=== PATIENT | male | born 2000 | race Hispanic/Latino ===

== ENCOUNTER 2021-02-16 08:59 | Emergency (ER) | payer SELFPAY ==
[2021-02-16] MEDS ORDERED: SODIUM CHLORIDE 0.9% 1000 ML 1,000 ML IV ONE (09:34)
--- NOTE | 2021-02-16 09:37 | Emergency Department Report ---
HPI - General Chief Complaint: Syncope Time Seen by Provider: 02/16/21 09:22 - HPI HPI: 21-year-old male presents to the emergency department via EMS from home with a complaint of seizure-like activity. The patient does not have any history of epilepsy or previous seizures. Patient says that he got up around 5:30 AM this morning and was complaining of some abnormal involuntary jerking movements of his arms. His significant other is at bedside and says that the patient came into the room, just prior to presentation, and suddenly had conv ulsions and went unresponsive. The convulsions lasted for a few minutes. When they stopped he appeared to be awake but was still confused and altered. At the time of my examination the patient is awake, alert, oriented, AAO x3, and only complains of a very mild headache. He denies any vision change, slurred speech, numbness or paresthesias, focal or lateralizing weakness, chest pain, shortness of breath, fever. He has not taken anything, nor received anything, for his symptoms prior to presentation today. ED Past Medical Hx - Past Medical History Previous Medical History?: No - Surgical History Past Surgical History?: No - Social History Smoking Status: Never Smoker Substance Use Type: None ED Review of Systems ROS: Stated complaint: SEIZURE ACTIVITY Other details as noted in HPI Comment: All other systems reviewed and negative Constitutional: denies: chills, fever Eyes: denies: eye pain, vision change ENT: denies: ear pain, throat pain Respiratory: denies: cough, shortness of breath Cardiovascular: denies: chest pain, palpitations Gastrointestinal: denies: abdominal pain, vomiting Genitourinary: denies: dysuria, discharge Musculoskeletal: denies: back pain, arthralgia Skin: denies: rash, lesions Neurological: headache (Very mild generalized), other (Seizure-like activity). denies: weakness, numbness, paresthesias Physical Exam - Physical Exam Vital Signs: Vital Signs 02/16/21 02/16/21 09:02 09:30 Temperature 98.2 F Pulse Rate 88 Respiratory 16 Rate Blood Pressure 128/80 [Left] O2 Sat by Pulse 100 97 Oximetry Physical Exam: GENERAL: The patient is well-developed well-nourished. HENT: Normocephalic. Atraumatic. Patient has moist mucous membranes. EYES: Extraocular motions are intact. No nystagmus. NECK: Supple. Trachea is midline. CHEST/LUNGS: Clear to auscultation. There is no respiratory distress noted. HEART/CARDIOVASCULAR: Regular. There is no tachycardia. There is no murmur. ABDOMEN: Abdomen is soft, nontender. Patient has normal bowel sounds. SKIN: Skin is warm and dry. NEURO: The patient is awake, alert, and oriented. The patient is cooperative. The patient has no focal neurologic deficits. Normal speech. Cranial nerves II through XII grossly intact. No facial asymmetry. No pronator drift or dysmetria. MUSCULOSKELETAL: There is no tenderness or deformity. There is no limitation range of motion. ED Course Vital Signs 02/16/21 02/16/21 09:02 09:30 Temperature 98.2 F Pulse Rate 88 Respiratory 16 Rate Blood Pressure 128/80 [Left] O2 Sat by Pulse 100 97 Oximetry ED Medical Decision Making - Lab Data Result diagrams: 02/16/21 09:38 02/16/21 09:38 Lab Results 02/16/21 02/16/21 02/16/21 Range/Units 09:38 09:38 09:38 WBC 6.7 (4.5-11.0) K/mm3 RBC 5.16 H (3.65-5.03) M/mm3 Hgb 15.3 H (11.8-15.2) gm/dl Hct 44.1 (35.5-45.6) % MCV 86 (84-94) fl MCH 30 (28-32) pg MCHC 35 H (32-34) % RDW 12.6 L (13.2-15.2) % Plt Count 195 (140-440) K/mm3 Lymph % (Auto) 15.2 (13.4-35.0) % Pratt % (Auto) 5.5 (0.0-7.3) % Eos % (Auto) 0.7 (0.0-4.3) % Baso % (Auto) 0.6 (0.0-1.8) % Lymph # (Auto) 1.0 L (1.2-5.4) K/mm3 Pratt # (Auto) 0.4 (0.0-0.8) K/mm3 Eos # (Auto) 0.0 (0.0-0.4) K/mm3 Baso # (Auto) 0.0 (0.0-0.1) K/mm3 Seg Neutrophils % 78.0 H (40.0-70.0) % Seg Neutrophils # 5.2 (1.8-7.7) K/mm3 Sodium 139 (137-145) mmol/L Potassium 3.6 (3.6-5.0) mmol/L Chloride 101.2 (98-107) mmol/L Carbon Dioxide 26 (22-30) mmol/L Anion Gap 15 mmol/L BUN 14 (9-20) mg/dL Creatinine 0.7 L (0.8-1.3) mg/dL Estimated GFR > 60 ml/min BUN/Creatinine Ratio 20 % Glucose 88 (75-100) mg/dL Calcium 9.0 (8.4-10.2) mg/dL Magnesium 2.10 (1.7-2.3) mg/dL Total Bilirubin 0.40 (0.1-1.2) mg/dL AST 18 (5-40) units/L ALT 17 (7-56) units/L Alkaline Phosphatase 72 (35-129) units/L Total Creatine Kinase 165 (55-170) units/L Total Protein 6.7 (6.3-8.2) g/dL Albumin 4.5 (3.9-5) g/dL Albumin/Globulin Ratio 2.0 % TSH (0.270-4.200) mlU/mL 02/16/21 Range/Units 09:38 WBC (4.5-11.0) K/mm3 RBC (3.65-5.03) M/mm3 Hgb (11.8-15.2) gm/dl Hct (35.5-45.6) % MCV (84-94) fl MCH (28-32) pg MCHC (32-34) % RDW (13.2-15.2) % Plt Count (140-440) K/mm3 Lymph % (Auto) (13.4-35.0) % Pratt % (Auto) (0.0-7.3) % Eos % (Auto) (0.0-4.3) % Baso % (Auto) (0.0-1.8) % Lymph # (Auto) (1.2-5.4) K/mm3 Pratt # (Auto) (0.0-0.8) K/mm3 Eos # (Auto) (0.0-0.4) K/mm3 Baso # (Auto) (0.0-0.1) K/mm3 Seg Neutrophils % (40.0-70.0) % Seg Neutrophils # (1.8-7.7) K/mm3 Sodium (137-145) mmol/L Potassium (3.6-5.0) mmol/L Chloride (98-107) mmol/L Carbon Dioxide (22-30) mmol/L Anion Gap mmol/L BUN (9-20) mg/dL Creatinine (0.8-1.3) mg/dL Estimated GFR ml/min BUN/Creatinine Ratio % Glucose (75-100) mg/dL Calcium (8.4-10.2) mg/dL Magnesium (1.7-2.3) mg/dL Total Bilirubin (0.1-1.2) mg/dL AST (5-40) units/L ALT (7-56) units/L Alkaline Phosphatase (35-129) units/L Total Creatine Kinase (55-170) units/L Total Protein (6.3-8.2) g/dL Albumin (3.9-5) g/dL Albumin/Globulin Ratio % TSH 3.080 (0.270-4.200) mlU/mL - EKG Data -: EKG Interpreted by Mi EKG shows normal: sinus rhythm, axis, intervals, QRS complexes, ST-T waves (Early repolarization) Rate: normal - EKG Data When compared to previous EKG there are: previous EKG unavailable Interpretation: normal EKG - Medical Decision Making This patient presents to the emergency department after having some seizure-like activity just prior to presentation. Since being in the emergency department he is awake, alert, oriented, AAO x3. He does not have any focal, motor or sensory deficits and his cranial nerves are intact. Labs have been unremarkable including CBC, metabolic panel, normal thyroid function, and no electrolyte derangements. Vital signs have been reassuring throughout his ED course including being afebrile. The patient has been reevaluated multiple times over about 3.5 hours without any return of seizure-like activity and he has remained stable throughout this ED course. For these reasons he appears safe for discharge home at this time. We discussed avoiding alcohol, caffeine or stimulants, illicit drugs. He knows that he cannot drive or operate heavy machinery until cleared by a neurologist. He will return to the closest emergency department with any return of seizure-like activity, new or concerning symptoms not addressed during this emergency department visit, or with any acute distress. Critical Care Time: No Critical care attestation.: If time is entered above; I have spent that time in minutes in the direct care of this critically ill patient, excluding procedure time. ED Disposition Clinical Impression: Seizure Disposition: 01 HOME / SELF CARE / HOMELESS Is pt being admited?: No Condition: Stable Instructions: Seizure, Adult Additional Instructions: Please follow-up with a primary care physician in the next few days. Please follow-up with a neurologist in the next few days. I am giving you a referral for a local neurologist, Dr. Small. Because of the seizure-like activity, you cannot drive or operate any heavy machinery until cleared to do so by a neurologist. Please avoid alcohol, excessive caffeine or stimulant intake, any illicit drugs. Try to get 8 hours of uninterrupted sleep at night. Return to the emergency department with any worsening of your symptoms, new or concerning symptoms not addressed during this current emergency department visit, or with any acute distress. Referrals: MARIA SMALL MD [Referring] - 3-5 Days Time of Disposition: 12:27
[2021-02-16 09:55] LABS: Basophils % (Auto) 0.6 % (0.0-1.8); Eosinophils % (Auto) 0.7 % (0.0-4.3); Hematocrit 44.1 % (35.5-45.6); Hemoglobin 15.3 gm/dl (11.8-15.2); Lymphocytes % (Auto) 15.2 % (13.4-35.0); Mean Corpuscular HGB Conc 35 % (32-34); Mean Corpuscular Volume 86 fl (84-94); Monocytes # (Auto) 0.4 K/mm3 (0.0-0.8); Monocytes % (Auto) 5.5 % (0.0-7.3); Platelet Count 195 K/mm3 (140-440); Red Blood Count 5.16 M/mm3 (3.65-5.03); Red Cell Distribution Width 12.6 % (13.2-15.2)
[2021-02-16 10:19] LABS: Alanine Aminotransferase 17 units/L (7-56); Albumin 4.5 g/dL (3.9-5); BUN/Creatinine Ratio 20; Blood Urea Nitrogen 14 mg/dL (9-20); Hemolysis Index 8
[2021-02-16 11:28] VITALS: BP 110/62
--- NOTE | 2021-02-17 10:27 | Electrocardiograph Report ---
[facility] Test Date: 2021-02-16 Test Time: 11:40:27 Pat Name: ROSHAN IBARRA Department: Room: Gender: M Welfare Case Worker: KAVYA : [id number] Requested By: DAVID MARTIN Order Number: [id number] Reading MD: Jarvis Jurado Measurements Intervals [place] Rate: 68 P: 52 CA: 159 QRS: 85 QRSD: 98 T: 31 QT: 389 QTc: 415 Interpretive Statements Sinus rhythm ST elev, probable normal early repol pattern No previous ECG available for comparison Electronically Signed On 02-17-2021 10:26:53 EDT by Jarvis Jurado
== END 2021-02-16 12:54 | disposition home or self-care (01) ==
LOC: ED 08:59
DX: R56.9 Unspecified convulsions (principal)
CPT/HCPCS: 36415; 80053; 82550; 83735; 84443; 85025; 93005; 96360; 96361; 99283; J7030